=== PATIENT | female | born 1940 | race Caucasian/White ===

== ENCOUNTER 2019-03-29 05:42 | Inpatient (IN) | payer MEDICARE, BC ==
--- NOTE | 2019-03-16 13:46 | HP ---
PREOPERATIVE HISTORY AND PHYSICAL: DATE OF ADMISSION/SURGERY: 03/29/19 DATE OF OFFICE VISIT: 03/16/19 ATTENDING SURGEON: Dr. Tom Velasquez.* (DICTATED BY BETTY KAM) PROCEDURE: Left total shoulder reverse, subpectoral biceps tenodesis. CHIEF COMPLAINT: Left shoulder pain. HISTORY OF PRESENT ILLNESS: Joey is a 78-year-old female who presents to the clinic for left shoulder pain due to rotator cuff arthropathy. She has failed conservative measures. Therefore, agreed to undergo a left total shoulder reverse, subpectoral biceps tenodesis with Dr. Velasquez on 03/29/19. PAST MEDICAL HISTORY: Hypertension, hypothyroidism, obstructive sleep apnea, diastolic dysfunction, permanent AFib, myocardial myopathy, nonobstructive coronary artery disease, obesity, bilateral pedal edema, and paroxysmal SVT. PAST SURGICAL HISTORY: Tonsillectomy, left ORIF of the humerus, right total shoulder replacement, left thumb, dental implants, hysterectomy, bilateral total knees. The patient denies prior complications with anesthesia. MEDICATIONS: 1. Vitamin D 1000 units 1 to 2 caps daily. 2. Calcium 350 mg 1 cap daily. 3. Synthroid 110 mcg 1 daily. 4. Eliquis 5 mg 1 by mouth twice a day. 5. Torsemide 10 mg 1 by mouth every day. 6. Duloxetine 30 mg 1 cap every morning. 7. Vitamin D one daily. 8. Rosuvastatin 5 mg 1 daily. 9. Bisoprolol 5 mg one-half every day. ALLERGIES: SULFA ANTIBIOTICS. FAMILY HISTORY: Positive for heart disease and diabetes. Denies family history of DVT or PE. SOCIAL HISTORY: She lives with her . She denies tobacco or illegal drug use or alcohol consumption. She is right-hand dominant. REVIEW OF SYSTEMS: A 14-point review of systems was reviewed with the patient. Positive for current complaint, otherwise negative. Denies fever, chills, chest pain, shortness of breath, history of bleeding disorder, history of DVT or PE. PHYSICAL EXAMINATION GENERAL: A 78-year-old well-developed, well-nourished female, in no acute distress. VITAL SIGNS: Height 65.5, weight 196. Pulse 80, blood pressure 104/76, temperature 97.8, BMI 32.1. HEENT: Normocephalic, atraumatic. PERRL. Throat clear. NECK: Supple. PULMONARY: Lungs are clear to auscultation bilaterally. No wheezing, rhonchi, or rales. CARDIO: Regular rate and rhythm. S1, S2. No murmurs, gallops, or rubs. No edema. ABDOMEN: Positive bowel sounds. Soft, nontender. NEURO: Alert and oriented x3. Cranial nerves grossly intact. MUSCULOSKELETAL: Left upper extremity: Skin is intact. No warmth or erythema. Tenderness over the anterior joint line. No signs of infection. Forward flexion 140, abduction 90, external rotation to 40, internal rotation to the lumbar spine. Full range of motion of the elbow, wrist, and hand. +4/5 strength to rotator cuff testing with pain. Positive impingement, [place], [place], [place], and [place]. +2 radial pulse. Sensation intact to light touch distally. IMPRESSION: Left shoulder rotator cuff arthropathy. PLAN: The patient is scheduled to undergo a left total shoulder reverse and subpectoral biceps tenodesis with Dr. Velasquez on 03/29/19. She will follow up 10 to 14 days postop for followup and suture removal. She will hold the Eliquis the day before surgery per her PCP recommendation. Percocet will be used for postop pain management. BETTY KAM [id number]/CPS #: [id number] MTDD
[~2019-03-29 05:42] MED LIST: Buffered Lidocaine 1% SYRIN* 1 ML/SYRINGE INTRADERM ONE
--- OUTSIDE RECORDS SUMMARY | 2019-03-29 05:45 | XMS REPORT | Continuity of Care Document ---
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 Onset: 10/24/2018 Arthroplasty of knee Nereida Crabtree M.D. Onset: 10/24/2018 Social History Type Date Description Comments Sex Unknown ETOH Use Drinks Alcoholic Beverages Occasionally Tobacco Use Start: Unknown Patient has never smoked Smoking Status Reviewed: 03/16/19 Patient has never smoked Exercise Type/Frequency Exercises regularly Allergies, Adverse Reactions, Alerts Active Allergies Reaction Severity Comments Date Sulfa Antibiotics 06/15/2013 Medications Active Medications SIG Qnty Indications Ordering Provider Date Vitamin D 1-2 caps by Unknown 1000Units mouth daily Calcium 1 cap by mouth Unknown 315mg daily Synthroid 110 mcg one tab daily Unknown Eliquis 1 by mouth twice Unknown 5mg Tablets a day Torsemide 1 by mouth every Unknown 10mg Tablets day Duloxetine HCL take 1 capsule Unknown 30mg Caps by mouth every DR Part morning Citracal +D3 Unknown [id number]-mg-Unit Chewtabs Rosuvastatin Calcium 1 tab by mouth Unknown 5mg daily Tablets Bisoprolol Fumarate 1/2 by mouth 90tabs Unknown 5mg every day Tablets Medications Administered in Office Medication SIG Qnty Indications Ordering Provider Date Triamcinolone (Kenalog) Tom Velasquez MD 10/27/2018 Injection Triamcinolone (Kenalog) Tom Velasquez MD 07/12/2018 Injection Triamcinolone (Kenalog) Tom Velasquez MD 07/12/2018 Injection Triamcinolone (Kenalog) Tom Velasquez MD 02/08/2018 Injection Triamcinolone (Kenalog) Tom Velasquez MD 02/08/2018 Injection Depomedrol 80MG Josh Cope M.D. 07/31/2014 Injection Immunizations Description No Information Available Vital Signs Date Vital Result Comment 03/16/2019 9:45am Height 65.5 inches 5'5.50" Weight 196.00 lb Heart Rate 80 /min BP Systolic 104 mmHg BP Diastolic 76 mmHg Body Temperature 97.8 F Pain Level 2 BMI (Body Mass Index) 32.1 kg/m2 02/24/2019 9:18am Height 65.5 inches 5'5.50" Weight 195.00 lb BP Systolic 112 mmHg BP Diastolic 72 mmHg Respiratory Rate 20 /min Pain Level 3 BMI (Body Mass Index) 32.0 kg/m2 Results Description No Information Available Procedures Date Code Description Status 10/27/2018 62875 Inject/Drain Joint/Bursa Major W/O US Completed Medical Devices Description No Information Available Encounters Type Date Location Provider Dx Diagnosis Office Visit 02/24/2019 [facility] Tom Velasquez MD M19.012 Primary 9:00a at [place] osteoarthritis, left shoulder M75.102 Unsp rotatr-cuff tear/ruptr of left shoulder, not trauma Office Visit 11/15/2018 [facility] M19.012 Primary 10:[facility]a [facility] osteoarthritis, left [place] shoulder M19.011 Primary osteoarthritis, right shoulder Office Visit 10/27/2018 [place] [facility] M19.012 Primary 10:30a [facility] osteoarthritis, left [place] shoulder M75.101 Unsp rotatr-cuff tear/ruptr of right shoulder, not trauma M19.011 Primary osteoarthritis, right shoulder M75.102 Unsp rotatr-cuff tear/ruptr of left shoulder, not trauma Office Visit 10/24/2018 9:15a [facility] Nereida Crabtree, Z96.652 Presence of left at [facility] Servin artificial knee joint Z96.651 Presence of right artificial knee joint M25.561 Pain in right knee M25.562 Pain in left knee M25.461 Effusion, right knee M25.462 Effusion, left knee T84.052A Periprosth osteolysis of internal prosthetic r knee jt, init T84.051A Periprosth osteolysis of internal prosthetic l hip jt, init Office Visit 09/22/2018 9:45a [facility] Tom Velasquez Z96.611 Presence of at [facility] HUA right artificial shoulder joint Office Visit 09/15/2018 10:30a [facility] Vel[facility] Z96.611 Presence of at [facility] HUA right artificial shoulder joint M25.511 Pain in right shoulder Assessments Date Code Description Provider 03/16/2019 M19.012 Primary osteoarthritis, left shoulder Tom Velasquez MD 03/16/2019 M75.102 Unspecified rotator cuff tear or rupture of Tom Velasquez MD left shoulder, n 02/24/2019 M19.012 Primary osteoarthritis, left shoulder Tom Velasquez MD 02/24/2019 M75.102 Unspecified rotator cuff tear or rupture of Tom Velasquez MD left shoulder, n 11/15/2018 M19.012 Primary osteoarthritis, left shoulder Tom Velasquez MD 11/15/2018 M19.011 Primary osteoarthritis, right shoulder Tom Velasquez MD 10/27/2018 M19.012 Primary osteoarthritis, left shoulder Tom Velasquez MD 10/27/2018 M75.101 Unspecified rotator cuff tear or rupture of Tom Velasquez MD right shoulder, 10/27/2018 M19.011 Primary osteoarthritis, right shoulder Tom Velasquez MD 10/27/2018 M75.102 Unspecified rotator cuff tear or rupture of Tom Velasquez MD left shoulder, n 10/24/2018 Z96.652 Presence of left artificial knee joint Solitario Gilbert.DFrank 10/24/2018 Z96.651 Presence of right artificial knee joint Nereidapito Crabtree M.DFrank 10/24/2018 M25.561 Pain in right knee Nereida Bro, M.D. 10/24/2018 M25.562 Pain in left knee Nereida Bro, M.D. 10/24/2018 M25.461 Effusion, right knee Nereida Bro M.D. 10/24/2018 M25.462 Effusion, left knee Nereida Bro M.D. 10/24/2018 T84.052A Periprosthetic osteolysis of internal Nereida Bro M.D. prosthetic right knee 10/24/2018 T84.051A Periprosthetic osteolysis of internal Nereida Bro M.D. prosthetic left hip jaskaran 09/22/2018 Z96.611 Presence of right artificial shoulder joint Tom Velasquez MD 09/15/2018 Z96.611 Presence of right artificial shoulder joint Tom Velasquez MD 09/15/2018 M25.511 Pain in right shoulder Tom Velasquez MD Plan of Treatment Future Appointment(s):04/11/2019 8:45 am - Tom Velasquez MD at [facility] at [id number]/29/2019 7:30 am - Tom Velasquez MD at [facility] at [id number]/16/2019 - Tom Velasquez MDM19.012 Primary osteoarthritis , left shoulderFollow up:Follow up: 10-14 days post opM75.102 Unspecified rotator cuff tear or rupture of left shoulder, n Functional Status Description No Information Available Mental Status Description No Information Available Referrals Description No Information Available
--- OUTSIDE RECORDS SUMMARY | 2019-03-29 05:45 | XMS REPORT | Continuity of Care Document ---
:1940 External Reference #:[id number] Author Name Tom Velasquez MD (transmitted by agent of provider Laurie Amaya) Address [address] [place] [address] Care Team Providers Name Role Phone Alisa Yip MD - Internal Medicine Care Team Information Safety Aide [phone] Problems Active Problems Provider Date Prosthetic arthroplasty [...] Patient has never smoked Smoking Status Reviewed: 02/24/19 Patient has never smoked Exercise Type/Frequency Exercises [...] every DR Part morning Citracal +D3 Unknown [id number]-mg-Unit Chewtabs Rosuvastatin Calcium 1 tab by mouth [...] Available Vital Signs Date Vital Result Comment 02/24/2019 9:18am Height 65.5 inches 5'5.50" Weight 195.00 lb BP Systolic 112 mmHg BP Diastolic 72 mmHg Respiratory Rate 20 /min Pain Level 3 BMI (Body Mass Index) 32.0 kg/m2 11/15/2018 9:54am Height 65.5 inches 5'5.50" Weight 195.00 lb BP Systolic 128 mmHg BP Diastolic 72 mmHg Respiratory Rate 20 /min Pain Level 3 BMI (Body Mass Index) 32.0 kg/m2 Results Description No Information Available Procedures Date Code Description Status 10/27/2018 13614 Inject/Drain Joint/Bursa Major W/O US Completed Medical Devices Description No Information Available Encounters Type Date Location Provider Dx Diagnosis Office Visit 11/15/2018 [facility] Tom Velasquez MD M19.012 Primary 10:[facility], left shoulder M19.011 Primary osteoarthritis, right shoulder Office Visit 10/27/2018 [facility] Tom Velasquez M19.012 Primary 10:30a [facility] osteoarthritis, left [facility]. shoulder M75.101 Unsp rotatr-cuff tear/ruptr of right shoulder, not trauma M19.011 Primary osteoarthritis, right shoulder M75.102 Unsp rotatr-cuff tear/ruptr of left shoulder, not trauma Office Visit 10/24/2018 9:15a [facility] Nereida Crabtree Z96.652 Presence of left [facility] [place] artificial knee C.M.A. joint Z96.651 Presence of right artificial knee joint M25.561 Pain in right knee M25.562 Pain in left knee M25.461 Effusion, right knee M25.462 Effusion, left knee T84.052A Periprosth osteolysis of internal prosthetic r knee jt, init T84.051A Periprosth osteolysis of internal prosthetic l hip jt, init Office Visit 09/22/2018 9:45a [facility] Tom Velasquez Z96.611 [facility] artificial C.M.A. shoulder joint Office Visit 09/15/2018 10:30a [facility] Tom Velasquez Z96.611 [facility] artificial C.M.A. shoulder joint M25.511 Pain in right shoulder Assessments Date Code Description Provider 02/24/2019 M19.012 Primary osteoarthritis, left shoulder Tom [...] Z96.652 Presence of left artificial knee joint Nereida Crabtree M.D. 10/24/2018 Z96.651 Presence of right artificial knee joint Nereida Crabtree M.D. 10/24/2018 M25.561 Pain in right knee Nereida Crabtree M.D. 10/24/2018 M25.562 Pain in left knee Nereida Crabtree M.D. 10/24/2018 M25.461 Effusion, right knee Nereida Crabtree M.D. 10/24/2018 M25.462 Effusion, left knee Nereida Crabtree M.D. 10/24/2018 T84.052A Periprosthetic osteolysis of internal Nereida Crabtree M.D. prosthetic right knee 10/24/2018 T84.051A Periprosthetic osteolysis of internal Nereida Crabtree M.D. prosthetic left hip jaskaran 09/22/2018 Z96.611 Presence of right artificial shoulder joint Tom Velasquez MD 09/15/2018 Z96.611 Presence of right artificial shoulder joint Tom Velasquez MD 09/15/2018 M25.511 Pain in right shoulder Tom Velasquez MD Plan of Treatment 02/24/2019 - Tom Velasquez, MDM19.012 Primary osteoarthritis, left shoulderFollow up:Follow up: for h and pM75.102 Unspecified rotator cuff tear or rupture of left shoulder, n Functional Status Description No Information Available Mental Status Description No Information Available Referrals Description No Information Available
--- OUTSIDE RECORDS SUMMARY | 2019-03-29 05:45 | XMS REPORT | Summary of Care ---
:1940 Author Organization [facility] Address [address] [place] [address] Care Team Providers Name Role Phone Alisa Yip Primary Care Provider Reason for Visit Reason Comments Pre-Op Exam Pt. is Scheduled for Left Total Shoulder Reverse And Subpectoral Biceps Tenodesis on 03/28/[address] Tom Velasquez. Medication Management Please discuss Eliquis protocol for surgery Encounter Details Date Type Department Care Team Description 03/20/2019 Office Visit Janet Samaniego, Preoperative cardiovascular examination (Primary Dx); Cardiology MD Jt Permanent atrial fibrillation; [address] [facility] [address] Coronary artery disease involving andreafski coronary artery of andreafski heart without angina pectoris; [place] [address] [place] [address] Family hx of aortic aneurysm [phone] Allergies Active Allergy Reactions Severity Noted Date Comments Codeine Other 03/22/2008 "gets me into space" Meperidine And Related Nausea Only 02/20/2003 Food Swelling 11/29/2015 Sweet peppers and eggplant Sulfa Antibiotics Dermatologic Reaction 02/20/2003 skin peels Neoprene=dermatitis Tomato Dermatologic Reaction 07/24/2008 canned documented as of this encounter (statuses as of 03/20/2019) Medications Medication Sig Dispensed Refills Start Date End Date Status VITAMIN D 1000 UNIT PO Take 1,000 Units 0 Active CAPS by mouth DAILY. Calcium Citrate-Vitamin Take 1 Tab by 0 Active D (CALCIUM CITRATE + D) mouth DAILY. 315-200 MG-UNIT Oral TabIndications: Chronic low back pain without sciatica, unspecified back pain laterality torsemide (DEMADEX) 10 Take 1 Tab by 30 Tab 11 07/07/2017 Active MG Oral TabIndications: mouth DAILY. Essential hypertension bisoprolol (ZEBETA) 5 MG TAKE 1/2 TABLET 45 Tab 3 02/15/2018 Active Oral TabIndications: BY MOUTH DAILY Cardiomyopathy (HCC) ELIQUIS 5 MG Oral take 1 tablet by 60 Tab 11 04/04/2018 Active TabIndications: mouth twice a Paroxysmal atrial day fibrillation (HCC) Rosuvastatin Calcium 5 take 1 tablet by 90 Tab 3 08/11/2018 Active MG Oral TabIndications: mouth once daily Coronary artery disease involving andreafski coronary artery of andreafski heart without angina pectoris duloxetine (CYMBALTA) 30 take 1 capsule 90 Cap 1 11/08/2018 Active MG Oral CAPSULE ENTERIC by mouth once COATED daily PARTICLESIndications: Chronic pain syndrome levothyroxine take 1 tablet by 90 Tab 3 12/13/2018 Active (SYNTHROID\\UNITHROID) mouth once daily 100 MCG Oral Tab tramadol (ULTRAM) 50 MG Take 1 Tab by 90 Tab 5 02/14/2019 Active Oral TabIndications: mouth EVERY Arthralgia of both knees EIGHT HOURS NEEDED (leg / knee pain). Max Daily Amount: 150 mg. documented as of this encounter (statuses as of 03/20/2019) Active Problems Problem Noted Date Status post total bilateral knee replacement 11/26/2016 Anticoagulant long-term use 09/04/2016 Left wrist pain 06/25/2016 Acquired equinus deformity of both feet 01/07/2016 Overview: Bilateral AFOs - [employer] Positive cardiac stress test 11/29/2015 Chronic a-fib 09/30/2015 JONAH (obstructive sleep apnea) 07/10/2015 Osteoporosis of forearm 01/29/2015 Overview: Hip and spine good - Frax data: 10 yr risk for major osteoporotic fracture - 6.7 %; hip fracture 0.5-% Paroxysmal SVT (supraventricular tachycardia) 04/02/2014 Palpitations 03/15/2014 Vertigo 01/25/2014 BMI 35.0-35.9,adult 11/23/2011 Overview: This patient's BMI has been calculated and is above average, and BMI management plan is completed. General patient education discussion including: Patient to keep a weight log that we will review at follow-up. Family hx of aortic aneurysm 07/16/2009 Overview: Mother and sister- had screening Echo ~2004 cta ordered 04/03 Vitamin D deficiency 08/02/2007 Hypothyroidism 07/11/2007 Migraine, unspecified, without mention of intractable migraine without 2007 mention of status migrainosus documented as of this encounter (statuses as of 03/20/2019) Resolved Problems Problem Noted Date Resolved Date Tachycardia 03/15/2014 04/02/2014 Absence of menstruation 07/11/2008 07/11/2008 documented as of this encounter (statuses as of 03/20/2019) Immunizations Name Administration Dates Next Due Adacel TdaP 11/26/2005 Depo Medrol (160mg) 12/21/2013 H1N1 Injectable Adult 07/02/2009 Influenza (IM) Preservative Free 03/22/2013, 03/08/2012 Influenza Vaccine High Dose 03/05/2019, 03/21/2018, 03/25/2016, 03/27/2015, 03/23/2014 Influenza Vaccine Whole 03/02/2017 PNEUMOCOCCAL POLYSACCHARIDE VACCINE 08/06/2010 Pneumococcal Conjugate(13 Valent) 01/09/2015 ZOSTER (ZOSTAVAX) VACCINE 07/11/2008 documented as of this encounter Social History Tobacco Use Types Packs/Day Years Used Date Never Smoker Smokeless Tobacco: Never Used Alcohol Use Drinks/Week oz/Week Comments Yes 2 Glasses of wine 2.0 2 glasses of wine a week Sex Assigned at Date Recorded Not on file Job Start Date Occupation Industry Not on file Not on file Not on file Travel History Travel Start Travel End No recent travel history available. documented as of this encounter Last Filed Vital Signs Vital Sign [place] Time Taken Comments Blood Pressure 118/64 03/20/2019 2:22 PM EDT Pulse 72 03/20/2019 2:22 PM EDT Temperature - - Respiratory Rate - - Oxygen Saturation - - Inhaled Oxygen Concentration - - Weight 88.9 kg (196 lb) 03/20/2019 2:22 PM EDT Height 165.1 cm (5' 5") 03/20/2019 2:22 PM EDT Body Mass Index 32.62 03/20/2019 2:22 PM EDT documented in this encounter Patient Instructions Patient InstructionsJt Samaniego MD - 03/20/2019 2:20 PM EDT No medication changes today. OK to proceed to your planned surgery at a low cardiac risk. Hold your Eliquis for 48 hours prior to surgery. Continue to work on a low sodium diet and weight loss. Keep your planned appointment with me next December. documented in this encounter Progress Notes Jt Samaniego MD - 03/20/2019 2:20 PM EDT [facility] Patient: Joey Padilla Date of : 1940 Date of Service: 03/20/2019 REFERRING PRACTITIONER: Tom Velasquez PRIMARY CARE PROVIDER: Alisa Yip Chief Complaint: Chief Complaint Patient presents with Pre-Op Exam Pt. is Scheduled for Left Total Shoulder Reverse And Subpectoral Biceps Tenodesis on 03/28/[address] Tom Velasquez. Medication Management Please discuss Eliquis protocol for surgery History of Present Illness: We had the pleasure of seeing Joey Alva today at the [facility] Card[facility] Office. She is a 78-y.o. female with hypothyroidism on Synthroid, obesity,JONAH on CPAP, diastolic dysfunction, symptomatic PACs/paroxysmal SVT as well as permanent atrial fibrillation, mild cardiomyopathy (now resolved), strong family history of aortic aneurysms, and positivenuclear stress test with nonobstructive CAD by cath November 2015. Ms. Camacho returns to cardiology clinic today for perioperative evaluation prior to undergoing L shoulder surgery with Dr. Velasquez on 03/28. Since her last visit with me in December, she reports feeling fairly well overall. BPs at home have been pretty good and her mild LE edema has been stable (as has her weight) . She still has issues with some ankle instability and gets some pain in her L lateral ankle, but that hasn't gotten too much worse recently. She is able to climb a flight of stairs as longas there are railings; doesn't get any CP with that activity. Does sometimes get winded with climbing hills. Denies any palpitations, lightheadedness, or syncope. No orthopnea or paroxysmal dyspnea. Patient Active Problem List Diagnosis Hypothyroidism Migraine, unspecified, without mention of intractable migraine without mention of status migrainosus Vitamin D deficiency Family hx of aortic aneurysm BMI 35.0-35.9,adult Vertigo Palpitations Paroxysmal SVT (supraventricular tachycardia) (HCC) Osteoporosis of forearm JONAH (obstructive sleep apnea) Chronic a-fib (HCC) Positive cardiac stress test Acquired equinus deformity of both feet Left wrist pain Anticoagulant long-term use Status post total bilateral knee replacement Past Medical History: Diagnosis Date Absence of menstruation 07/11/2008 BMI 35.0-35.9,adult 11/23/2011 Migraine, unspecified, without mention of intractable migraine without mention of status migrainosus 07/11/2007 JONAH (obstructive sleep apnea) 07/10/2015 Osteoarthritis 07/11/2007 Osteoarthrosis, unspecified whether generalized or localized, hand 2007 Osteoarthrosis, unspecified whether generalized or localized, other specified sites 03/19/2008 Postmenopausal Screening for malignant neoplasm of the cervix 03/14/2012 Special screening for malignant neoplasms, colon 07/2003 Unspecified hypothyroidism 07/11/2007 Vitamin D deficiency 08/02/2007 Past Surgical History: Procedure Laterality Date CATHETERIZATION HEART LEFT N/A 11/29/2015 Procedure: CATHETERIZATION HEART LEFT; Surgeon: Babar Reyna MD; Location: [facility] CCL SECTION NEC X2 KNEE/ANKLE ARTHROPLASTY 9.2.2002 RIGHT OTHER MISC PROCEDURES 11.20.2006 LRTI procedure,right thumb-resection of base of trapezoid,right hand OTHER MISC PROCEDURES 10.9.2007 basilar joint and trapezial arthritis,left thumb AL REMOVE TONSILS/ADENOIDS,<12 Y/O AL TOTAL ABDOM HYSTERECTOMY SHOULDER ARTHROPLAST NEC right TOTAL ABD HYSTERECTOMY TOTAL KNEE REPLACEMENT 5..1995 Left Allergies Allergen Reactions Codeine Other "gets me into space" Demerol 100 [Meperidine And Related] Nausea Only Food Swelling Sweet peppers and eggplant Sulfa Antibiotics Dermatologic Reaction skin peels Neoprene=dermatitis Tomato Dermatologic Reaction canned Current Outpatient Medications Medication bisoprolol (ZEBETA) 5 MG Oral Tab Calcium Citrate-Vitamin D (CALCIUM CITRATE + D) 315-200 MG-UNIT Oral Tab duloxetine (CYMBALTA) 30 MG Oral CAPSULE ENTERIC COATED PARTICLES ELIQUIS 5 MG Oral Tab levothyroxine (SYNTHROID\\UNITHROID) 100 MCG Oral Tab Rosuvastatin Calcium 5 MG Oral Tab torsemide (DEMADEX) 10 MG Oral Tab VITAMIN D 1000 UNIT PO CAPS Family History Problem Relation Age of Onset Arthritis Mother Hypertension Mother Heart Mother Aneurysm Mother upper aorta Diabetes Father Stroke Father Heart Father ID Stroke Brother Breast Cancer Paternal Aunt Social History Socioeconomic History Marital status: Spouse name: Not on file Number of children: Not on file Years of education: Not on file Highest education level: Not on file Occupational History Not on file Social Needs Financial resource strain: Not on file Food insecurity: Worry: Not on file Inability: Not on file Transportation needs: Medical: Not on file Non-medical: Not on file Tobacco Use Smoking status: Never Smoker Smokeless tobacco: Never Used Substance and Sexual Activity Alcohol use: Yes Alcohol/week: 2.0 standard drinks Types: 2 Glasses of wine per week Comment: 2 glasses of wine a week Drug use: No Sexual activity: Not on file Lifestyle Physical activity: Days per week: Not on file Minutes per session: Not on file Stress: Not on file Relationships Social connections: Talks on phone: Not on file Gets together: Not on file Attends anabaptism service: Not on file Active member of club or organization: Not on file Attends meetings of clubs or organizations: Not on file Relationship status: Not on file Intimate partner violence: Fear of current or ex partner: Not on file Emotionally abused: Not on file Physically abused: Not on file Forced sexual activity: Not on file Other Topics Concern Not on file Social History Narrative suddenly - 12/01- Pancreatic cancer Review of Systems - Negative except as noted in HPI. No bleeding issues on Eliquis. Physical Exam: Vitals: 03/20/19 1422 BP: 118/64 BP Location: Right arm Patient Position: Sitting Pulse: 72 Weight: 196 lb (88.9 kg) Height: 5' 5" (1.651 m) Body mass index is 32.62 kg/m. General: Overweight, pleasant, alert 78-y.o. female in NAD HEENT: anicteric, MMM, no E/E OP, conj pink Neck: JVP approx 7-8 cm above RA; no carotid bruits or LAD CV: Irreg irreg, normal s1/s2, 1-2/6 systolic ejection mumur at USB as before. No rubs/gallops Pulm: CTA bilaterally without wheezes, rhonchi, or rales. No increased work of breathing. Abd: soft, obese, NT, ND, +BS. No appreciable pulsatile masses or bruits. Ext: Trace bilateral ankle edema. No cyanosis, no cords, redness, or warmth, 2 + distal pulses. Neuro: no gross focal deficits Skin: no visible lesions Labs: Lab Results Component Value Date NA 141 03/09/2019 K 4.0 03/09/2019 CL 102 03/09/2019 CO2 33 (H) 03/09/2019 GLUCOSE 88 03/09/2019 BUN 18 (H) 03/09/2019 CREATININE 0.8 03/09/2019 CALCIUM 9.4 03/09/2019 TP 7.2 03/10/2017 ALBUMIN 3.9 03/10/2017 AST 44 03/10/2017 ALT 35 03/10/2017 ALK 122 03/10/2017 TBILI 1.0 03/10/2017 No results found for: BNP Lab Results Component Value Date CHOL 129 01/17/2018 TRIG 86 01/17/2018 HDL 44 (L) 01/17/2018 LDL 68 01/17/2018 LDLHDLRATIO 1.5 01/17/2018 CHOLHDLRATIO 2.9 01/17/2018 Cardiac Studies: EKG 03/09/19 (I personally reviewed): Afib in 60s. No sig change from prior. TTE 08/08/18: FINAL IMPRESSION: Global systolic function is normal, with an estimated ejection fraction of 60-65%. Diastolic function is indeterminate (by 2016 guidelines). The left atrium is mildly (35-41 ml/m2) dilated measuring 39 ml/m2. Proximal Ascending Aorta measures 3.65 cm with indexed diameter of 1.85 cm/m2 and is borderline dilated. There is trivial to mild mitral regurgitation. There is mild to moderate aortic regurgitation. There is mild tricuspid regurgitation. There is trivial pulmonic regurgitation. Compared to the prior echocardiogram of 07/2015, there is improvement in LVEF and LA size and may be slight worsening of Aortic Regurgitation. Further clinical correlation is recommended. Left Heart Cath 11/29/15: SUMMARY: 1. No significant obstructive coronary artery disease. 2. Ectasia noted in the vessels with slow flow. Regadenoson SPECT 08/30/15: Findings: There is decreased radiopharmaceutical uptake seen by the apical and mid anterior segment showing some interval reperfusion on resting images indicating small area of mild intensity ischemia. There is no left ventricular enlargement. There is no left ventricular hypokinesia. The left ventricular ejection fraction is 69 %. Left ventricular end-diastolic volume of 83 ml and end systolic volume of [address] findings: Coronary artery calcification. Impression: 1. There is a small area of mild intensity ischemia involving apical and mid anterior segments. 2. There is normal wall motion. 3.The left ventricular ejection fraction is 69 %. TTE 08/16/2015: FINAL IMPRESSION: Patient is in atrial fibrillation at the time of examination. Normal LV size with severe left atrial enlargement. Low normal LV systolic function with no regional wall motion abnormalities; estimated LVEF 50% (see text). Severe right atrial enlargement. Normal RV size and systolic function. Mild mitral, aortic, and tricuspid regurgitation. Estimated upper normal pulmonary arterial systolic pressure. No pericardial effusion. Compared to prior study 04/22/2015, LVEF has improved (40% --> 50%). Other findings are largely similar. CTA C/A/P 04/21/14: IMPRESSION: The abdominal aorta and iliac arteries are tortuous, most consistent with arterial disease most likely atherosclerotic in nature. No other indication of significant aortic or iliac artery pathology or aneurysm including the main visceral arteries, in the chest abdomen or pelvis is appreciated. Holter Monitor 03/15/14: INTERPRETATION: 1. Baseline rhythm during the recording was normal sinus rhythm. 2. The minimum observed heart rate was 52 beats per minute and the maximum was 112 beats per minute. Average rate throughout the recording was 75 beats per minute and the maximum pause was 1.5 seconds. 3. Rare ventricular ectopic beats were noted (209 beats throughout the duration of the recording). 4. Frequent supraventricular beats (9% of the recording) with runs of supraventricular tachycardia as long as 32 beats were noted. 5. The supraventricular tachycardia appears to be a "long R-P" tachycardia, which is consistent with a paroxysmal atrial tachycardia. 6. Eight patient events were noted in the patient log; these all corresponded to brief runs of supraventricular tachycardias. CONCLUSION: Underlying normal sinus rhythm with frequent supraventricular ectopics/premature atrial contractions. Numerous runs of supraventricular tachycardia (likely paroxysmal atrial tachycardia), which correspond to patient's symptoms of palpitations. Adenosine SPECT 01/26/2003: IMPRESSION: Normal dual isotope pharmacological gated stress and resting SPECT heart scan. The left ventricular wall motion appears normal throughout and the global left ventricular ejection fracture is calculated at 59%. Assessment & Plan: Joey Padilla is a 78-y.o. female with hypothyroidism on Synthroid , obesity, JONAH on CPAP, diastolic dysfunction, symptomatic PACs/paroxysmal SVT as well as permanent atrial fibrillation, mild cardiomyopathy (now resolved), strong family history of aortic aneurysms, and positive nuclear stress test with nonobstructive CAD by cath November 2015. ICD-9-CM ICD-10-CM 1. Preoperative cardiovascular examination V72.81 Z01.810 2. Permanent atrial fibrillation 427.31 I48.2 3. Coronary artery disease involving andreafski coronary artery of andreafski heart without angina pectoris 414.01 I25.10 4. Family hx of aortic aneurysm V17.49 Z82.49 1. Perioperative Risk Assessment: According to the [place] Perioperative Cardiac Risk Assessment Tool,Joey Padilla has an estimated risk for perioperative ID or cardiac arrest with noncardiac surgery of approximately 0.21 %. According to the Revised Cardiac Risk Index, her estimated riskfor perioperative ID, PE, cardiac arrest, or complete heart block with noncardiac surgery is approximately 0.9%. Her functional status is no greater than 4 METs. In order to further evaluate and/or attenuate this patient's risk, I recommend the following: No further cardiac testing is needed at this time, and she can proceed to her planned shoulder surgery at an acceptably low cardiac risk as detailed above. She should hold her Eliquis for 48 hours prior to surgery and restart as soon after surgery as Dr. Velasquez deems safe from a bleeding perspective. She should remain on bisoprolol perioperatively. Try to avoid excessive IVFs perioperatively. 2. Permanent Atrial Fibrillation: The etiology of atrial fibrillation in this patient is most likelyrelated to obesity and JONAH. The heart-rate is currently reasonably controlled on the current medicalregimen. This patient's [id number] Vasc score is 4. I recommend the following treatment strategy and medical regimen for this patient: Stroke prevention: Based on the patient's [id number] risk profile, I recommend continuing Eliquis 5mg BID. No bleeding issues on the Eliquis. Renal function normal on recent labs. Rate control: Cont bisoprolol. Rhythm control: N/A; pt is not having any significant symptoms from the AF and her LA is severely enlarged, so would likely have difficulty maintaining NSR. Further workup/management issues: Cont CPAP 3. Resolved Nonischemic Cardiomyopathy with NYHA Class I-II symptoms: Nonobstructive CAD by cath. Symptoms are quite stable. Recommendations are as follows: Most recent LV function: 60-65% (assessed on 08/08/18 by echo). Beta-carmine: Cont low dose bisoprolol 2.5mg daily. ANDRES-inhibitor or ARB: No need given normal/low BPs in the past and normal LVEF. Diuretics: Cont torsemide 10mg once daily. Can take an extra 10mg daily prn for worsening LE edema. I counseled her to continue working on a low sodium diet. 4. Family History of Aortic Aneurysms: No sig aneurysm noted on echo in Jul 2018 or on CTA April2014. Will cont to monitor; reasonable to repeat a CT at some point. 5. Nonobstructive CAD: Had myalgias from atorvastatin. Given her known mild plaque on cath, I think a low dose statinis reasonable in her, and she has had a significant improvement in her LDL down to 60 on low dose Crestor. Will cont 5mg daily. Not on ASA d/t My Thank you for allowing me to participate in the care of Joey Jl Padilla. We have scheduled routine f/u in our office in December as previously planned. If you have any questions or concerns please feel free to call our office at . Jt Samaniego MD, 03/20/2019, 14:43 This note was created using my previous note as a template; changes were made where appropriate, andall information in the current note is up to date to the best of my knowledge.Electronically signed by Jt Samaniego MD at 2018 2:58 PM EDTdocumented in this encounter Plan of Treatment Date Type Specialty Care Team Description 01/17/2020 Office Visit Cardiology Jt Samaniego MD [address] [place] [address] [phone] Health Maintenance Due Date Last Done Comments ZOSTER IMMUNIZATION SERIES 09/05/2008 07/11/2008 (2 of 3) DEPRESSION SCREENING 05/30/2019 05/30/2018 FALL RISK ASSESSMENT 05/30/2019 05/30/2018, 05/30/2018 OSTEOPOROSIS SCREENING 01/10/2025 01/10/2015, 11/26/2006 MEDICARE ANNUAL WELLNESS Discontinued 01/09/2015, 11/23/2012, VISIT 11/23/2011, Additional history exists PNEUMOCOCCAL 65+YRS Completed 01/09/2015, 08/06/2010 INFLUENZA VACCINE Completed 03/05/2019, 03/21/2018, 03/02/2017, Additional history exists HPV IMMUNIZATION SERIES Aged Out No longer eligible based on patient's age to complete this topic MENINGOCOCCAL VACCINE IMM Aged Out No longer eligible based on patient's age to complete this topic documented as of this encounter Results Not on filedocumented in this encounter Visit Diagnoses Diagnosis Preoperative cardiovascular examination - Primary Pre-operative cardiovascular examination Permanent atrial fibrillation Atrial fibrillation Coronary artery disease involving andreafski coronary artery of andreafski heart without angina pectoris Family hx of aortic aneurysm Family history of other cardiovascular diseases documented in this encounter Guarantor Name Account Type Relation to Date of Phone Billing Address Patient Janice-de Personal/Famil 1940 [address] [phone] [place], [place] (Work) [id number] documented as of this encounter
--- OUTSIDE RECORDS SUMMARY | 2019-03-29 05:45 | XMS REPORT | Summary of Care ---
:1940 Author Organization [facility] Address [facility] [place] [address] Care Team Providers Name Role Phone Alisa Yip MD Primary Care Provider Reason for Referral MRI/CAT/PET Scan (Routine) Status Reason Specialty Diagnoses / Referred By Referred To Procedures Contact Contact Authorized Diagnoses Pedal edema Alisa Yip MD Procedures VL LOWER EXTREMITY DUPLEX VEINS BILATERAL [address] [place] [address] Reason for Visit Reason Comments Edema c/o bilateral upper and lower leg swelling. Pitting edema lower legs over the weekend. Denies weeping. Also c/o discomfort with walking. States not taking torsemide as strictly due to bathroom concerns. States was away last week and did a lot of walking. Encounter Details Date Type Department Care Team Description 02/14/2019 Office Visit [facility] Alisa Yip MD Pedal edema (Primary Dx); Medicine [address] [facility] Hypothyroidism, unspecified type; [address] [place] [address] Chronic a-fib (HCC); [place] [address] Acquired equinus deformity of both feet; [phone] Anticoagulant long-term use; (Fax) Arthralgia of both knees Allergies Active Allergy Reactions Severity Noted Date Comments Codeine Other 03/22/2008 "gets me into space" Meperidine And Related Nausea Only 02/20/2003 Food Swelling 11/29/2015 Sweet peppers and eggplant Sulfa Antibiotics Dermatologic Reaction 02/20/2003 skin peels Neoprene=dermatitis Tomato Dermatologic Reaction 07/24/2008 canned documented as of this encounter (statuses as of 02/14/2019) Medications Medication Sig Dispensed Refills Start Date [...] mouth once daily Coronary artery disease involving [place] coronary artery of [place] heart without angina pectoris duloxetine (CYMBALTA) 30 [...] as of this encounter (statuses as of 02/14/2019) Active Problems Problem Noted Date Status post total bilateral knee replacement 11/26/2016 Anticoagulant long-term use 09/04/2016 Left wrist pain 06/25/2016 Acquired equinus deformity of both feet 01/07/2016 Overview: Bilateral AFOs - 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 Positive cardiac stress test 11/29/2015 Chronic [...] as of this encounter (statuses as of 02/14/2019) Resolved Problems Problem Noted Date Resolved Date Tachycardia 03/15/2014 04/02/2014 Absence of menstruation 07/11/2008 07/11/2008 documented as of this encounter (statuses as of 02/14/2019) Immunizations Name Administration Dates Next Due Adacel TdaP 11/26/2005 Depo Medrol (160mg) 12/21/2013 H1N1 Injectable Adult 07/02/2009 Influenza (IM) Preservative Free 03/22/2013, 03/08/2012 Influenza Vaccine High Dose 03/21/2018, 03/25/2016, 03/27/2015, 03/23/2014 Influenza Vaccine Whole [...] Sign Reading Time Taken Comments Blood Pressure 118/72 02/14/2019 4:57 PM EDT Pulse 80 02/14/2019 4:57 PM EDT Temperature - - Respiratory Rate 18 02/14/2019 4:57 PM EDT Oxygen Saturation 99% 02/14/2019 4:57 PM EDT Inhaled Oxygen - - Concentration Weight 91.6 kg (202 lb) 02/14/2019 4:57 PM with bilateral leg EDT braces Height 165.1 cm (5' 5") 02/14/2019 4:57 PM EDT Body Mass Index 33.61 02/14/2019 4:57 PM EDT documented in this encounter Patient Instructions Patient InstructionsAlisa Yip MD - 02/14/2019 5:00 PM EDTPlan 1. Keep the legs up - 2. knee high compression mild 15- 20 - 3. Resume torsemide - May take 1.5 pills - but if weight down and feel weak need to cut back- 4. vl to assess for clots in the legs- not likely with anticoag on board - Combine actetamonphen - 1000 mg 3x / day with tramadol - documented in this encounter Progress Notes Alisa Yip MD - 02/14/2019 5:00 PM EDT NAME:Joey Padilla 1940: 1940 ENC Date: 02/14/2019 CC: Chief Complaint Patient presents with Edema c/o bilateral upper and lower leg swelling. Pitting edema lower legs over the weekend. Denies weeping. Also c/o discomfort with walking. States not taking torsemide as strictly due to bathroom concerns. States was away last week and did a lot of walking. Joey Padilla is a 78-y.o. female Bilateral pedal edema - Was on vacation- Walking a lot - in [place] Current Outpatient Medications Medication Sig bisoprolol (ZEBETA) 5 MG Oral Tab TAKE 1/2 TABLET BY MOUTH DAILY Calcium Citrate-Vitamin D (CALCIUM CITRATE + D) 315-200 MG-UNIT Oral Tab Take 1 Tab by mouth DAILY. duloxetine (CYMBALTA) 30 MG Oral CAPSULE ENTERIC COATED PARTICLES take 1 capsule by mouth once daily ELIQUIS 5 MG Oral Tab take 1 tablet by mouth twice a day levothyroxine (SYNTHROID\\UNITHROID) 100 MCG Oral Tab take 1 tablet by mouth once daily Rosuvastatin Calcium 5 MG Oral Tab take 1 tablet by mouth once daily torsemide (DEMADEX) 10 MG Oral Tab Take 1 Tab by mouth DAILY. tramadol (ULTRAM) 50 MG Oral Tab Take 1 Tab by mouth EVERY EIGHT HOURS NEEDED (leg / knee pain). Max Daily Amount: 150 mg. VITAMIN D 1000 UNIT PO CAPS Take 1,000 Units by mouth DAILY. No current facility-administered medications for this visit. 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 General patient education discussion including: Patient to keep a weight log that we will review at follow-up. Family hx of aortic aneurysm 07/16/2009 Mother and sister- had screening Echo ~2004 cta ordered 04/03 Vitamin D deficiency 08/02/2007 Hypothyroidism 07/11/2007 Migraine, unspecified, without mention of intractable migraine without mention of status migrainosus 07/11/2007 Family History Problem Relation Age of Onset Arthritis Mother Hypertension Mother Heart Mother Aneurysm Mother upper aorta Diabetes Father Stroke Father Heart Father [place] Stroke Brother Breast Cancer Paternal Aunt No cardiopulmonary symptoms No upper or lower GI complaints No urinary tract symptoms. No bruising/ bleeding. No neurological complaints . No insomnia.+ . Social History Tobacco Use Smoking status: Never Smoker Smokeless tobacco: Never Used Substance Use Topics Alcohol use: Yes Alcohol/week: 2.0 standard drinks Types: 2 Glasses of wine per week Comment: 2 glasses of wine a week Drug use: No OBJECTIVE: BP 118/72 (BP Location: Right arm, Patient Position: Sitting) | Pulse 80 | Resp 18 | Ht 5' 5" (1.651 m) | Wt 202 lb (91.6 kg) Comment: with bilateral leg braces | SpO2 99% | BMI 33.61 kg/m . Heent neg Neck no JVD, thyromegaly or bruit Lungs Clear CV rrr Abd soft, nontender, no organomegaly Ext 2+edema; no lesions; pulses intact Neuro: intellect intact ; motor including gait unremarkable A/P ICD-9-CM ICD-10-CM 1. Pedal edema 782.3 R60.0 VL LOWER EXTREMITY DUPLEX VEINS BILATERAL 2. Hypothyroidism, unspecified type 244.9 E03.9 3. Chronic a-fib (HCC) 427.31 I48.2 4. Acquired equinus deformity of both feet 736.72 M21.6X1 M21.6X2 5. Anticoagulant long-term use V58.61 Z79.01 6. Arthralgia of both knees 719.46 M25.561 tramadol (ULTRAM) 50 MG Oral Tab M25.562 Patient Instructions Plan 1. Keep the legs up - 2. knee high compression mild 15- 20 - 3. Resume torsemide - May take 1.5 pills - but if weight down and feel weak need to cut back- 4. vl to assess for clots in the legs- not likely with anticoag on board - Combine actetamonphen - 1000 mg 3x / day with tramadol - AUTHOR: Alisa Yip MD 17:46 02/14/2019 documented in this encounter Plan of Treatment Date Type Specialty Care Team Description 03/30/2019 Office Visit Internal Medicine Alisa Yip MD [address] [place] [address] 01/17/2020 Office Visit Cardiology Jt Samaniego MD [facility] [place] [address] Name Type Priority Associated Diagnoses Order Schedule VL LOWER EXTREMITY Imaging Routine Pedal edema 1 Occurrences starting DUPLEX VEINS BILATERAL 02/14/2019 until 02/14/2020 Health Maintenance Due Date Last Done Comments ZOSTER IMMUNIZATION SERIES 09/05/2008 07/11/2008 (2 of 3) INFLUENZA VACCINE (#1) 2019 03/21/2018, 03/02/2017, 03/25/2016, Additional history exists DEPRESSION SCREENING 05/30/2019 05/30/2018 FALL RISK ASSESSMENT 05/30/2019 05/30/2018, 05/30/2018 OSTEOPOROSIS SCREENING 01/10/2025 01/10/2015, 11/26/2006 MEDICARE ANNUAL WELLNESS Discontinued 01/09/2015, 11/23/2012, VISIT 11/23/2011, Additional history exists PNEUMOCOCCAL 65+YRS Completed 01/09/2015, 08/06/2010 HPV IMMUNIZATION SERIES Aged Out No longer eligible based on patient's age to complete this topic MENINGOCOCCAL VACCINE IMM Aged Out No longer eligible based on patient's age to complete this topic documented as of this encounter Results Not on filedocumented in this encounter Visit Diagnoses Diagnosis Pedal edema - Primary Edema Hypothyroidism, unspecified type Chronic a-fib (HCC) Atrial fibrillation Acquired equinus deformity of both feet Anticoagulant long-term use Encounter for long-term (current) use of anticoagulants Arthralgia of both knees documented in this encounter Guarantor Name Account Type Relation to Date of Phone Billing Address Patient Janice-de Personal/Famil 1940 [address] [phone] [place], [place] (Work) [id number] documented as of this encounter
--- OUTSIDE RECORDS SUMMARY | 2019-03-29 05:45 | XMS REPORT | Summary of Care ---
:1940 Author Organization [facility] Address [address] [facility] [place] [address] Care Team Providers Name Role Phone Alisa Yip MD Primary Care Provider Reason for Visit Reason Comments Pre-Op Exam Pre op for left shoulder replacement on 03/28/[address] Velasquez at [facility]. Encounter Details Date Type Department Care Team Description 03/09/2019 Office Visit [facility] Alisa Yip MD Preop examination (Primary Dx); Medicine [address] [facility] [address] [address] Hypothyroidism, unspecified type; [address] [place] [address] Chronic a-fib (HCC); [place] [address] Anticoagulant long-term use; [phone] JONAH (obstructive sleep apnea); (Fax) Lipid disorder; Paroxysmal SVT (supraventricular tachycardia) (HCC); Essential hypertension; Arthralgia of left acromioclavicular joint Allergies Active Allergy Reactions Severity Noted Date Comments Codeine Other 03/22/2008 "gets me into space" Meperidine And Related Nausea Only 02/20/2003 Food Swelling 11/29/2015 Sweet peppers and eggplant Sulfa Antibiotics Dermatologic Reaction 02/20/2003 skin peels Neoprene=dermatitis Tomato Dermatologic Reaction 07/24/2008 canned documented as of this encounter (statuses as of 03/09/2019) Medications Medication Sig Dispensed Refills Start Date [...] mouth once daily Coronary artery disease involving [place] coronary artery of [place] heart without angina pectoris duloxetine (CYMBALTA) 30 [...] as of this encounter (statuses as of 03/09/2019) Active Problems Problem Noted Date Status post total bilateral knee replacement 11/26/2016 Anticoagulant long-term use 09/04/2016 Left wrist pain 06/25/2016 Acquired equinus deformity of both feet 01/07/2016 Overview: 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 Positive cardiac stress test 11/29/2015 Chronic [...] as of this encounter (statuses as of 03/09/2019) Resolved Problems Problem Noted Date Resolved Date Tachycardia 03/15/2014 04/02/2014 Absence of menstruation 07/11/2008 07/11/2008 documented as of this encounter (statuses as of 03/09/2019) Immunizations Name Administration Dates Next Due Adacel [...] Sign Reading Time Taken Comments Blood Pressure 98/62 03/09/2019 1:56 PM EDT Pulse 60 03/09/2019 1:56 PM EDT Temperature - - Respiratory Rate - - Oxygen Saturation 100% 03/09/2019 1:56 PM EDT Inhaled Oxygen Concentration - - Weight 90.8 kg (200 lb 3.2 oz) 03/09/2019 1:56 PM EDT Height 165.1 cm (5' 5") 03/09/2019 1:56 PM EDT Body Mass Index 33.32 03/09/2019 1:56 PM EDT documented in this encounter Patient Instructions Patient InstructionsAlisa Yip MD - 03/09/2019 1:40 PM EDTPlan Blood pressure low today - On diuretic and beta carmine which reduce blood pressure - former helping to control pedal edema - latter supressing ectopics - which gives incentive to continue both - Since patient asymptomatic would continue both and monitor - She should hold the eliquis the day before surgery and then restart as per the surgical team - Continue synthroid/ zebeta should be taken with a sip of water day of surgery ; hold torsemide the am of surgery - She will bring her CPAP gear to the hospital documented in this encounter Progress Notes Alisa Yip MD - 03/09/2019 1:40 PM EDT NAME:Joey Padilla 1940: 1940 ENC Date: 03/09/2019 CC: Chief Complaint Patient presents with Pre-Op Exam Pre op for left shoulder replacement on 03/28/[address] Velasquez at [facility]. Joey Padilla is a 78-y.o. 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 / treadmill / bicycle without problem She denies any shortness of breath / chest pressure / palpitations/ faint / cough She has not history of reacton to anesthesia ; No bruising or bleeding problems Current Outpatient Medications Medication Sig bisoprolol (ZEBETA) [...] of both feet 01/07/2016 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 Positive cardiac stress test 11/29/2015 Chronic a-fib (HCC) 09/30/2015 JONAH (obstructive sleep apnea) 07/10/2015 Osteoporosis of forearm 01/29/2015 Hip and spine good - Frax data: 10 yr risk for major osteoporotic fracture - 6.7 %; hip fracture 0.5-% Paroxysmal SVT (supraventricular tachycardia) ([facility]) 04/02/2014 Palpitations 03/15/2014 Vertigo 01/25/2014 BMI 35.0-35.9,adult [...] aorta Diabetes Father Stroke Father Heart Father [place] Stroke Brother Breast Cancer Paternal Aunt No [...] a week Drug use: No OBJECTIVE: BP 98/62 (BP Location: Left arm, Patient Position: Sitting) | Pulse 60 | Ht 5 ' 5" (1.651 m) | Wt 200 lb 3.2 oz (90.8 kg) | SpO2 100% | BMI 33.32 kg/m . Heent neg Neck no JVD, thyromegaly or bruit Lungs Clear CV rrr ? Abd soft, nontender, no organomegaly Ext wide ankes - compression stockings -1+ edema Ankles turned in - Pulses bounding bilaterally - no evidence of venous stasis Neuro: intellect intact ; motor including gait unremarkable EKG - afib - 60 bpm A/P ICD-9-CM ICD-10-CM 1. Preop examination V72.84 Z01.818 AMBULATORY 12 LEAD EKG (GLOBAL) CBC WITH DIFFERENTIAL BASIC METABOLIC PANEL 2. Hypothyroidism, unspecified type 244.9 E03.9 THYROID STIMULATING HORMONE 3. Chronic a-fib (HCC) 427.31 I48.2 4. Anticoagulant long-term use V58.61 Z79.01 5. JONAH (obstructive sleep apnea) 327.23 G47.33 6. Lipid disorder 272.9 E78.9 LDL, DIRECT 7. Paroxysmal SVT (supraventricular tachycardia) (HCC) 427.0 I47.1 8. Essential hypertension 401.9 I10 9. Arthralgia of left acromioclavicular joint 719.41 M25.512 AMBULATORY 12 LEAD EKG (GLOBAL) Patient is a good candidate for planned surgery- no further testing Necessary. Her risk of a cardiovascular complication is < 0.5% aka the [facility] Cardiac preop will be completed by Dr Samaniego in the next few days ; ;[facility] Patient Instructions Plan Blood pressure low today - On diuretic and beta carmine which reduce blood pressure - former helping to control pedal edema - latter supressing ectopics - which gives incentive to continue both - Since patient asymptomatic would continue both and monitor - She should hold the eliquis the day before surgery and then restart as per the surgical team - Continue synthroid/ zebeta should be taken with a sip of water day of surgery ; hold torsemide the am of surgery - AUTHOR: Alisa Yip MD 14:51 03/09/2019 documented in this encounter Plan of Treatment Date Type Specialty Care Team Description 03/20/2019 Office Visit Cardiology Jt Samaniego MD [address] [place] [address] [phone] 03/30/2019 Office Visit Internal Medicine Alisa Yip MD [address] [place] [address] 01/17/2020 Office Visit Cardiology Jt Samaniego MD [address] [place] [address] [phone] Name Type Priority Associated Diagnoses Date/Time CBC WITH DIFFERENTIAL Lab Routine Preop examination 03/09/2019 3:31 PM EDT THYROID STIMULATING Lab Routine Hypothyroidism, 03/09/2019 3:31 PM HORMONE unspecified type EDT BASIC METABOLIC PANEL Lab Routine Preop examination 03/09/2019 3:31 PM EDT LDL, DIRECT Lab Routine Lipid disorder 03/09/2019 3:31 PM EDT Name Type Priority Associated Diagnoses Order Schedule AMBULATORY 12 LEAD EKG EKG Routine Preop examination Ordered: 03/09/2019 (GLOBAL) Arthralgia of left acromioclavicular joint CBC WITH DIFFERENTIAL Lab Routine Preop examination Expected: 03/09/2019 (Approximate), Expires: 09/05/2019 THYROID STIMULATING Lab Routine Hypothyroidism, unspecified Expected: HORMONE type 03/09/2019 (Approximate), Expires: 09/05/2019 BASIC METABOLIC PANEL Lab Routine Preop examination Expected: 03/09/2019 (Approximate), Expires: 09/05/2019 LDL, DIRECT Lab Routine Lipid disorder Expected: 03/09/2019 (Approximate), Expires: 09/05/2019 Health Maintenance Due Date Last Done Comments [...] filedocumented in this encounter Visit Diagnoses Diagnosis Preop examination - Primary Preoperative examination, unspecified Hypothyroidism, unspecified type Chronic a-fib (HCC) Atrial fibrillation Anticoagulant long-term use Encounter for long-term (current) use of anticoagulants JONAH (obstructive sleep apnea) Obstructive sleep apnea (adult) (pediatric) Lipid disorder Unspecified disorder of lipoid metabolism Paroxysmal SVT (supraventricular tachycardia) (HCC) Paroxysmal supraventricular tachycardia Essential hypertension Unspecified essential hypertension Arthralgia of left acromioclavicular joint Pain in joint, shoulder region documented in this encounter Guarantor Name Account Type Relation to Date of Phone Billing Address Patient Janice-de Personal/Famil 1940 [address] [phone] [place], [place] (Work) [address] documented as of this encounter
--- OUTSIDE RECORDS SUMMARY | 2019-03-29 05:45 | XMS REPORT | Continuity of Care Document ---
:1940 External Reference #:[id number] Author Name Tom Velasquez MD (transmitted by agent of provider Laurie Amaya) Address [address] [place] [address] Care Team Providers Name Role Phone Alisa Yip MD - Internal Medicine Care Team Information Hand Embroiderer [phone] Problems Active Problems Provider Date Prosthetic arthroplasty [...] every DR Part morning Citracal +D3 Unknown [phone]-mg-Unit Chewtabs Rosuvastatin Calcium 1 tab by mouth [...] Available Procedures Date Code Description Status 10/27/2018 42848 Inject/Drain Joint/Bursa Major W/O US Completed Medical [...]
--- OUTSIDE RECORDS SUMMARY | 2019-03-29 05:45 | XMS REPORT | Continuity of Care Document ---
:1940 External Reference #:[id number] Author Name Tom Velasquez MD (transmitted by agent of provider Nina Sanchez) Address [address] [place] [address] Care Team Providers Name Role Phone Alisa Yip MD - Internal Medicine Care Team Information Nurses Aide [phone] Problems Active Problems Provider Date Prosthetic arthroplasty [...] every DR Part morning Citracal +D3 Unknown [phone]-mg-Unit [place] Rosuvastatin Calcium 1 tab by mouth [...] Available Procedures Date Code Description Status 10/27/2018 83688 Inject/Drain Joint/Bursa Major W/O US Completed Medical Devices Description No Information Available Encounters Type Date Location Provider Dx Diagnosis Office Visit 02/24/2019 Orthopedic Tom Velasquez MD M19.012 Primary 9:00a [facility] osteoarthritis, left shoulder M75.102 Unsp rotatr-cuff tear/ruptr of left shoulder, not trauma Office Visit 11/15/2018 Trino Velasquez M19.012 Primary 10:00a Services Of MD osteoarthritis, left C.M.A. shoulder M19.011 Primary osteoarthritis, right shoulder Office Visit 10/27/2018 Orthopedic Tom Velasquez M19.012 Primary 10:30a Services Of osteoarthritis, left C.M.A. shoulder M75.101 Unsp rotatr-cuff tear/ruptr of right shoulder, not trauma M19.011 Primary osteoarthritis, right shoulder M75.102 Unsp rotatr-cuff tear/ruptr of left shoulder, not trauma Office Visit 10/24/2018 9:15a Orthopedic Nereida Crabtree, Z96.652 Presence of left Services Of Gareth [...] Tom Velasquez Z96.611 Presence of Services Of right artificial C.M.A. shoulder joint Office Visit 09/15/2018 10:30a Orthopedic Davidson Ruiz96.611 Presence of Services Of right artificial C.M.A. shoulder joint M25.511 Pain in [...] M.D. 10/24/2018 M25.561 Pain in right knee NereidaSolitario Horton.Josephine 10/24/2018 M25.562 Pain in left knee NereidaSolitario Horton.DFrank 10/24/2018 M25.461 Effusion, right knee Nereida Solitario Crabtree.Josephine 10/24/2018 M25.462 Effusion, left knee Nereida Crabtree M.D. 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 M.DFrank prosthetic right knee 10/24/2018 T84.051A Periprosthetic osteolysis of internal Nereidapito Crabtree M.DFrank prosthetic left hip jaskaran 09/22/2018 Z96.611 Presence of right artificial shoulder joint Tom Velasquez MD 09/15/2018 Z96.611 Presence of right artificial shoulder joint Tom Velasquez MD 09/15/2018 M25.511 Pain in right shoulder Tom Velasquez MD Plan of Treatment Future Appointment(s):03/29/2019 7:30 am - Tom Velasquez MD at [facility]03/16/2019 9:45 am - [facility] - Tom Velasquez, MDM19.012 Primary osteoarthritis, left shoulderFollow up:Follow up: for h and pM75.102 Unspecified rotator cuff tear or rupture of left shoulder, n Functional Status Description No Information Available Mental Status Description No Information Available Referrals Description No Information Available
[2019-03-29] MEDS ORDERED: Famotidine IV* 10 MG/ML 2 ML (20 mg) IV ONE (06:00)
[2019-03-29] MEDS ORDERED: Lactated Ringers 1000 ML Bag* 1,000 ML IV SCH ×2 (06:00→10:00)
[2019-03-29] MEDS ORDERED: Famotidine IV* 10 MG/ML 2 ML (20 mg) ONE (06:13)
[2019-03-29] MEDS ORDERED: ceFAZolin 2 GM in NS PREMIX(*) 2 GM/100 ML BAG IVPB ONE (06:13)
[2019-03-29] MEDS ORDERED: Lidocaine 1% MPF ** 5 ML VIAL ONE (06:57)
[2019-03-29] MEDS ORDERED: ROPIVACAINE 5 MG/ML 30 ML BTL (0.5%) ONE (06:57)
[2019-03-29 07:07] LABS: INR 1.13 (0.82-1.09)
[2019-03-29] MEDS ORDERED: Midazolam* 1 MG/ML 5 ML VIAL (5 MG) ONE (07:28)
[2019-03-29] MEDS ORDERED: fentaNYL* 50 MCG/ML 2 ML VIAL (100 MCG VIAL) ONE (08:03)
[2019-03-29] MEDS ORDERED: KETAMINE HCL* 50 MG/ML 10 ML VIAL ONE (08:11)
[2019-03-29] MEDS ORDERED: Ondansetron INJ* 2 MG/ML VIAL ONE (08:55)
[2019-03-29] MEDS ORDERED: Succinylcholine* 20 MG/ML 10 ML VIAL ONE (08:55)
[2019-03-29] MEDS ORDERED: Dexamethasone IV* 4 MG/ML 1 ML (4 MG) ONE (08:55)
[2019-03-29] MEDS ORDERED: Lidocaine 2% PF * 5 ML VIAL ONE (08:55)
[2019-03-29] MEDS ORDERED: Ketorolac INJ* 30 MG/ML 1 ML VIAL ONE (08:55)
[2019-03-29] MEDS ORDERED: Propofol* 10 MG/ML 20 ML BTL ONE (08:55)
[2019-03-29] MEDS ORDERED: EPHEDrine (Pressors)* 50 MG/ML VIAL ONE (08:55)
[2019-03-29] MEDS ORDERED: Phenylephrine 40 MCG/ML SYRINGE ONE (08:55)
[2019-03-29] MEDS ORDERED: DiMENhydriNATE IV* 50 MG/ML VIAL ONE (08:55)
[2019-03-29] MEDS ORDERED: Magnesium Hydroxide LIQ* 30 ML UDC PO PRN (09:48)
[2019-03-29] MEDS ORDERED: oxyCODONE TAB* 5 MG TAB PO PRN (09:48)
[2019-03-29] MEDS ORDERED: Polyethylene Glycol 3350* 17 GM PACKET PO PRN (09:48)
[2019-03-29] MEDS ORDERED: Cyclobenzaprine TAB* 10 MG PO PRN (09:48)
[2019-03-29] MEDS ORDERED: diPHENhydraMINE PO* 25 MG PO PRN (09:48)
[2019-03-29] MEDS ORDERED: Ondansetron INJ* 2 MG/ML VIAL IV PRN (09:48)
[2019-03-29] MEDS ORDERED: Ondansetron ODT TAB* 4 MG PO PRN (09:48)
[2019-03-29] MEDS ORDERED: traMADol TAB* 50 MG PO PRN (09:48)
[2019-03-29] MEDS ORDERED: diPHENhydraMINE IV* 50 MG/ML 1 ml VIAL (BENADRYL) IV PRN (09:48)
[2019-03-29] MEDS ORDERED: Temazepam CAP* 15 MG PO PRN (09:48)
[2019-03-29] MEDS ORDERED: Morphine INJ* 2 MG/ML 1 ML SYRINGE (TWO MG - NEW SYRINGE VERSION) IV PRN (09:48)
[2019-03-29] MEDS ORDERED: Acetaminophen TAB* 325 MG PO PRN (11:02)
[2019-03-29] MEDS: ceFAZolin 1 GM ADVAN(*) 1 GM in NS 0.9% 50 ML* 50 ML IVPB SCH (16:48)
[2019-03-29] MEDS: Acetaminophen TAB* 325 MG PO SCH ×2 (16:52→22:16)
[2019-03-29] MEDS: Bisoprolol TAB* 5 MG PO SCH (18:13)
[2019-03-29] MEDS: Cholecalciferol TAB* 1000 UNITS PO SCH (18:13)
[2019-03-29] MEDS: Atorvastatin* 10 MG TAB PO SCH (18:14)
[2019-03-29] MEDS: oxyCODONE/Acetamin 5/325 MG* TAB PO PRN ×2 (18:18→22:22)
--- NOTE | 2019-03-29 19:00 | OP ---
CC: PCP, Dr. Yip * DATE OF OPERATION: 03/29/19 - ROOM #350 DATE OF : 38 ATTENDING SURGEON: Tom Velasquez MD BUSINESS OFFICE TECHNOLOGY INSTRUCTOR: BETTY Olsen. An drug safety assistant was needed for the entirety of the case to help with positioning, retraction, and was utilized throughout all portions of the case. ANESTHESIOLOGIST: Dr. Cooley. ANESTHESIA: General interscalene block. PRE-OP DIAGNOSIS: Left rotator cuff arthropathy. POST-OP DIAGNOSIS: Left rotator cuff arthropathy. OPERATIVE PROCEDURE: Left shoulder reverse arthroplasty and open biceps tenodesis. COMPLICATIONS: None. ESTIMATED BLOOD LOSS: About 150. IMPLANTS: Tornier Reversed Aequalis threaded post baseplate 25 x 30 and centered glenosphere 36 mm, Flex shoulder system with a centered tray and +6 poly and an Ascend Flex 4B stem. OUTPUT: Drains x1. INDICATIONS: Joey Juarez is a 78-year-old female with persistent left shoulder pain. She has failed conservative management. She has elected to proceed surgical treatment. She has rotator cuff arthropathy. After extensive discussion on risks and benefits of operative versus nonoperative treatment, she has elected to proceed with surgical treatment. The risks include but not limited to bleeding; infection; damage to nerves, vessels, surrounding structures; wound nonhealing; persistent pain; need for surgery; scaring; stiffness; incomplete relief of symptoms; risks of anesthesia , DVT, risk of dislocation or fracture. She underwent preoperative medical risk optimization and stabilized for surgery. DESCRIPTION OF PROCEDURE: The patient was greeted in the preoperative area by the attending surgeon. Correct extremity was marked. Consent was confirmed. The patient underwent interscalene nerve block by the anesthesiologist after which she was brought back to the operating table. She was placed in the supine position on the operating room table. She then underwent general anesthesia with endotracheal intubation after which she was properly positioned in a lazy beach chair position. All bony prominences were padded. She was secured with safety straps. The left shoulder was then prepped and draped in the usual sterile fashion beginning with chlorhexidine soap, scrub, and alcohol wipe and a final prep with ChloraPrep. After appropriate surgical pause indicating site, side, procedure, administration of antibiotics, a standard delta pectoral incision was then made. Soft tissues were carefully dissected to expose the delta pectoral intervals. The cephalic vein was identified, taken laterally over the deltoid. The clavipectoral facia was released. The CA ligament was released. The pec tendon was identified. The proximal 1 to 1.5 cm was then released. The biceps was then opened, was then tenodesed using heavy nonabsorbable suture. It was tenotomized proximal to that. The biceps was then followed to the glenohumeral joint and the subscap was then released in a subscapular fashion. There was evidence of full-thickness tear at the supraspinatus tendon. The subscap was tagged with a #5 Ethibond suture for retraction. Soft tissues were carefully released. After the subscap was released, the head was gently dislocated. There were grade 4 changes to the humeral head. A freehand neck cut was then made and using the anatomic landmarks, the canal finder was used to find the canal. The broaching began, size 4B was found to be a good fit. The Cryo/Cuff was weaned after all osteophytes were removed. The traction plate was placed and attention directed to the glenoid. The posterior retractor then placed. The glenoid was exposed. There was evidence of grade 3 and 4 changes. The anterior, superior, and posterior labrum were then removed. The subscap was debrided with adhesions and the superior, medial, and inferior glenohumeral ligaments were released with care to protect the neurovascular structures. The inferior structures were released carefully. Once the glenoid was exposed, the guide was then used to place it low inferior in the midline of the glenoid. The reaming then began with a size 25 mm reamer. The spinner hand was then done for 36 mm glenosphere. The 8-mm cannula drill was then used to drill and then 6.5 mm drill hole was measured and 30 was found to be appropriate. The screw hole was then tapped. The final implant was then brought to field and placed with excellent purchase. Three interlocking screws were then placed with excellent purchase with the appropriate length. The glenosphere was then impacted into position, secured with a set screw. Attention was then directed to the humerus. The humerus exposed. The stem was first checked to see if it was well seated. The centered tray was then placed and the +6 poly was placed. The shoulder was then reduced, taken through range of motion, had appropriate amount of shuck and forward flexion was about 160, abduction about 90, external rotation to about 55. The shoulder was then dislocated and the final implants were chosen. Two interosseous drill tunnels were then made and #5 Ethibond suture was then passed for later subscap closure. The final implants were then prepared on the back table, was then impacted into position. The shoulder was then reduced , taken through range of motion, was found to be the same as the trial. The wounds were then copiously irrigated with sterile saline. The subscap was closed in a horizontal mattress configuration. The wound was irrigated again. Intraarticular drain was placed and then irrigated again. The delta pectoral interval was closed with 2-0 Ethibond suture. The wounds were irrigated, skin was closed in layers with 3-0 Monocryl for subcu and 3-0 Monocryl running sterile dressings were applied. A Cryo/Cuff and a sling were applied. She was awoken from anesthesia, transferred to PACU in stable condition. POSTOPERATIVE PLAN: She will be nonweightbearing in the sling for approximately 6 weeks. She will be admitted overnight for 24 hours for postoperative antibiotics. I will continue to monitor the patient. She will be discharged on postop day 1. She will be on Lovenox for DVT prophylaxis while she is inhouse and then discharged without anything. I will see her back in the office in 10 to 14 days. [id number]/CPS #: [id number] MTDLeoncio
[2019-03-29] MEDS: Apixaban* 5 MG TAB PO SCH (20:48)
[2019-03-29] MEDS: Docusate CAP* 100 MG PO SCH (20:48)
[2019-03-30] MEDS: ceFAZolin 1 GM ADVAN(*) 1 GM in NS 0.9% 50 ML* 50 ML IVPB SCH ×2 (00:11→08:17)
[2019-03-30] MEDS: Levothyroxine TAB* 100 MCG TAB PO SCH (05:46)
[2019-03-30] MEDS: Acetaminophen TAB* 325 MG PO SCH ×3 (05:46→22:32)
[2019-03-30 06:29] LABS: Hematocrit 33 % (35-47); Hemoglobin 11.2 g/dL (12.0-16.0); Mean Platelet Volume 9.9 fL (7.4-10.4); Platelet Count 126 10^3/uL (150-450)
[2019-03-30 06:48] LABS: BUN/Creatinine Ratio 27.4 (8-20); Calcium 8.8 mg/dL (8.6-10.3); EGFR African American 79.1 (>60); EGFR Non-African American 65.4 (>60); Potassium 4.3 mmol/L (3.5-5.0)
[2019-03-30] MEDS: Calcium Carbonate TAB* 1250 MG (CALCIUM 500 MG) PO SCH (08:18)
[2019-03-30] MEDS: Apixaban* 5 MG TAB PO SCH ×2 (08:18→19:56)
[2019-03-30] MEDS: Docusate CAP* 100 MG PO SCH ×2 (08:18→19:56)
[2019-03-30] MEDS: oxyCODONE/Acetamin 5/325 MG* TAB PO PRN ×3 (08:18→19:56)
[2019-03-30] MEDS: DULoxetine DR CAP* 30 MG CAP.DR PO SCH (08:18)
[2019-03-30] MEDS: Vitamin THERAPEUTIC TAB PO SCH (08:18)
[2019-03-30] MEDS: Torsemide TAB* 20 MG PO SCH (08:20)
--- NOTE | 2019-03-30 11:14 | PN ---
Progress Note - Progress Note Date of Service: 03/30/19 SOAP: Subjective: []Pt seen at bedside. She feels well without dizziness, nausea, chest pain, shortness of breath Objective: []Gen: Appears well, NAD LLE: Left shoulder in sling, drain removed with tip intact. Wrist and digit flexion and extension intact, thumbs up and okay intact. Sensation intact to light touch distally. Cap refill less than 2 seconds distally and radial pulse 2 + Assessment: []Left shoulder reverse Plan: []nwb LUE, PROM only of shoulder, no FF or abd past 90 no ER past 25. 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 Vital Signs Temp 98.5 F 03/30/19 07:36 Pulse 66 03/30/19 07:36 Resp 18 03/30/19 10:35 BP 103/64 03/30/19 07:36 Pulse Ox 95 03/30/19 07:36 Intake & Output 03/29/19 03/30/19 03/30/19 18:59 06:59 18:59 Intake Total 1500 1290 1060 Output Total 100 225 Balance 1400 1290 835 Intake: IV Fluids 1500 1000 1010 LR 1500 1000 1010 IVPB 50 50 ABX - CEFAZOLIN 50 50 Oral 240 Output: Hemovac Amount #1 100 Urine 225 Other: # Voids 1 Laboratory Last Values Hgb 11.2 g/dL (12.0-16.0) L 03/30/19 06:10 Hct 33 % (35-47) L 03/30/19 06:10 Plt Count 126 10^3/uL (150-450) L 03/30/19 06:10 MPV 9.9 fL (7.4-10.4) 03/30/19 06:10 INR (Anticoag Therapy) 1.13 (0.82-1.09) H 03/29/19 06:47 Sodium 139 mmol/L (135-145) 03/30/19 06:10 Potassium 4.3 mmol/L (3.5-5.0) 03/30/19 06:10 Chloride 107 mmol/L (101-111) 03/30/19 06:10 Carbon Dioxide 28 mmol/L (22-32) 03/30/19 06:10 Anion Gap 4 mmol/L (2-11) 03/30/19 06:10 BUN 23 mg/dL (6-24) 03/30/19 06:10 Creatinine 0.84 mg/dL (0.51-0.95) 03/30/19 06:10 Est GFR ( Amer) 79.1 (>60) 03/30/19 06:10 Est GFR (Non-Af Amer) 65.4 (>60) 03/30/19 06:10 BUN/Creatinine Ratio 27.4 (8-20) H 03/30/19 06:10 Glucose 135 mg/dL (70-100) H 03/30/19 06:10 Calcium 8.8 mg/dL (8.6-10.3) 03/30/19 06:10
--- NOTE | 2019-03-30 11:18 | PN ---
Progress Note - Progress Note Date of Service: 03/30/19 Note: Pt seen and examined. Doing ok. Pain controlled. Sling and drain in place. AFVSS NAD. AAOx3. dressing in place. SILT grossly distally. brisk cap refill. able to flex/ext digits Xrays reviewed and acceptable. A/P 78 yo F POD#1 from L reverse doing well [facility]B dispo home vs SNF analgesia post op abx
[2019-03-30] MEDS ORDERED: Enoxaparin(*) 40 MG/0.4 ML SYR SUBCUT SCH (12:00)
[2019-03-30] MEDS: Atorvastatin* 10 MG TAB PO SCH (18:10)
[2019-03-30] MEDS: Bisoprolol TAB* 5 MG PO SCH (18:10)
[2019-03-30] MEDS: Cholecalciferol TAB* 1000 UNITS PO SCH (18:10)
[2019-03-31] MEDS: oxyCODONE/Acetamin 5/325 MG* TAB PO PRN ×3 (03:44→18:12)
[2019-03-31] MEDS: Levothyroxine TAB* 100 MCG TAB PO SCH (05:32)
[2019-03-31] MEDS: Acetaminophen TAB* 325 MG PO SCH ×3 (05:34→20:59)
[2019-03-31 06:55] LABS: Hematocrit 35 % (35-47); Hemoglobin 11.6 g/dL (12.0-16.0); Mean Platelet Volume 9.7 fL (7.4-10.4); Platelet Count 126 10^3/uL (150-450)
[2019-03-31] MEDS: Docusate CAP* 100 MG PO SCH ×2 (08:47→21:02)
[2019-03-31] MEDS: Vitamin THERAPEUTIC TAB PO SCH (08:47)
[2019-03-31] MEDS: Calcium Carbonate TAB* 1250 MG (CALCIUM 500 MG) PO SCH (08:47)
[2019-03-31] MEDS: Torsemide TAB* 20 MG PO SCH (08:47)
[2019-03-31] MEDS: Apixaban* 5 MG TAB PO SCH ×2 (08:47→21:02)
[2019-03-31] MEDS: DULoxetine DR CAP* 30 MG CAP.DR PO SCH (08:47)
[2019-03-31] MEDS ORDERED: Bisacodyl SUPP* 10 MG SUPP PR PRN (09:48)
--- NOTE | 2019-03-31 16:03 | PN ---
Progress Note - Progress Note Date of Service: 03/31/19 SOAP: Subjective: [Pt seen at bedside. She feels well without dizziness, nausea, chest pain, shortness of breath Objective: []Gen: Appears well, NAD LLE: Left shoulder in sling, dressing changed. Wrist and digit flexion and extension intact, thumbs up and okay intact. Sensation intact to light touch distally. Cap refill less than 2 seconds distally and radial pulse 2+ Vital Signs Temp 97.4 F 03/31/19 15:51 Pulse 64 03/31/19 15:51 Resp 16 03/31/19 15:51 BP 133/72 03/31/19 15:51 Pulse Ox 99 03/31/19 15:51 Intake & Output 03/30/19 03/31/19 03/31/19 18:59 06:59 18:59 Intake Total 2273 1050 500 Output Total 237 413 3768 Balance 1623 750 -500 Intake: IV Fluids 1723 LR 1723 IVPB 310 ABX - CEFAZOLIN 50 ABX - VANCOMYCIN 260 Oral 240 1050 500 Output: Urine 339 455 4435 Other: Date of Last Bowel 03/31/19 Movement # Bowel Movements 1 Estimated Stool Amount Small Assessment: []Left total shoulder reverse Plan: []nwb LUE, PROM only of shoulder, no FF or abd past 90 no ER past 25. Ok AROM elbow wrist and hand [facility] tomorrow
[2019-03-31] MEDS: Cholecalciferol TAB* 1000 UNITS PO SCH (18:07)
[2019-03-31] MEDS: Atorvastatin* 10 MG TAB PO SCH (18:08)
[2019-03-31] MEDS: Bisoprolol TAB* 5 MG PO SCH (18:08)
[2019-04-01] MEDS: oxyCODONE/Acetamin 5/325 MG* TAB PO PRN ×3 (01:17→10:10)
[2019-04-01] MEDS: Levothyroxine TAB* 100 MCG TAB PO SCH (05:26)
[2019-04-01] MEDS: Acetaminophen TAB* 325 MG PO SCH (05:33)
[2019-04-01 07:17] LABS: Hematocrit 35 % (35-47); Hemoglobin 11.7 g/dL (12.0-16.0); Mean Platelet Volume 9.5 fL (7.4-10.4); Platelet Count 132 10^3/uL (150-450)
--- NOTE | 2019-04-01 08:28 | PN ---
Progress Note - Progress Note Date of Service: 04/01/19 Note: Pt seen and examined. Doing well. Pain is controlled. Potentially going to [facility] today. Sling in place. Temp Pulse Resp BP Pulse Ox 97.4 F 67 16 123/76 97 04/01/19 03:40 04/01/19 03:40 04/01/19 05:27 04/01/19 03:40 04/01/19 03:40 NAD. AAOx3. sitting comfortably in chair. SILT grossly distally. 2+ radial pulse. able to flex/ext digits. dressing in place. Laboratory Results - last 24 hr 04/01/19 07:09 Hgb 11.7 L Hct 35 Plt Count 132 L MPV 9.5 A/P POD#3 from L reverse doing well dispo today analgesia dressing down and may shower. will see 10-14 days post op
[2019-04-01] MEDS: Vitamin THERAPEUTIC TAB PO SCH (08:32)
[2019-04-01] MEDS: Apixaban* 5 MG TAB PO SCH (08:32)
[2019-04-01] MEDS: Docusate CAP* 100 MG PO SCH (08:32)
[2019-04-01] MEDS: DULoxetine DR CAP* 30 MG CAP.DR PO SCH (08:32)
[2019-04-01] MEDS: Calcium Carbonate TAB* 1250 MG (CALCIUM 500 MG) PO SCH (08:33)
[2019-04-01] MEDS: Torsemide TAB* 20 MG PO SCH (08:34)
[2019-04-01 08:44] VITALS: BP 121/72
--- NOTE | 2019-04-01 08:54 | DS ---
Orthopedic Discharge Summary - Discharge Summary Date of Admission:03/29/19 Date of Discharge: 04/01/19 Date of Surgery: 03/29/19 Attending Orthopedic Provider: Dr. Velasquez Pre-operative Diagnosis: Left rotator cuff arthropathy Operative Procedure: Left shoulder reverse arthroplasty and bicep tenodesis Disposition of Patient: [facility] Condition of Patient: Stable History: JUNG ARZOLA is a 78 year old F with years of increasingly severe left shoulder pain. Patient has failed conservative management and has elected to undergo a Left shoulder reverse arthroplasty and bicep tenodesis. Hospital Course: JUNG was admitted to [facility] on 03/29/19. Patient underwent a Left shoulder reverse arthroplasty and bicep tenodesis without complication followed by a brief recovery in PACU and transfer to the Short Stay Surgical Unit in stable condition. Our hospitalist service, physical therapy and occupational therapy also participated in this patients care. Post- op day 1: patient was alert and in no acute distress. Dressing was clean, dry and intact. Operative extremity with wrist flexion and extension intact, sensation intact to light touch distally, radial pulse2+. Post-op day two: dressing was changed, incision was clean, dry and intact. She continued PT and pain management. Post-op day 3: Patient was deemed to be medically and orthopedically stable for discharge. Physical therapy goals were met. Home Medications Medication Instructions Recorded Confirmed Type Apixaban* [Eliquis(TAB)] 5 mg PO BID 10/16/15 03/29/19 History Bisoprolol Fumarate [Bisoprolol 2.5 mg PO QPM 10/16/15 03/29/19 History Fumarate-] Cholecalciferol (Vitamin D3) 2,000 unit PO QPM 10/16/15 03/29/19 History [Vitamin D] DULoxetine DR HENRY* [Cymbalta CAP*] 30 mg PO QAM 10/16/15 03/29/19 History Torsemide TAB* [Demadex*] 10 mg PO QAM 10/16/15 03/29/19 History Levothyroxine TAB* [Synthroid TAB*] 100 mcg PO QAM 03/16/19 03/29/19 History Rosuvastatin Calcium 5 mg PO QPM 03/16/19 03/29/19 History traMADol TAB* [Ultram*] 50 mg PO BID 03/16/19 03/29/19 History Calcium 500 mg PO QAM 03/29/19 03/29/19 History Discharge Instructions following Orthopedic Surgery: Activity: * Sling at all times. Ok to extend elbow 1-2 times daily. * Continue physical therapy and occupational therapy exercises as shown. Wound care: * OK to shower. No bathing, swimming, or submerging wound. * Use gentle soap, pat dry. Cover with gauze, ANDRES wrap or tape if needed. Call Orthopedic office for: * Increased drainage * Redness * Increased pain * Fever Go to ER with shortness of breath or chest pain. Diet: * Regular diet * Increase fluids and fiber to prevent constipation. * Continue to use stool softeners, call office if no bowel motion within 48 hours. Medications: See Home Medication List in your packet for medications that you should take after discharge. Pain Control: Percocet Dosin/325 mg 1-2 tabs by mouth every 4-6 hours as needed for pain. Maximum of 10 tabs per day. Cyclobenzaprine 10 mg by mouth three times daily as needed for muscle spasm. Please note that Percocet contains Tylenol (acetaminophen). Maximum daily dose of Tylenol is 4000 mg from all sources. Antibiotics are required prior to any dental work. FOLLOW UP: Follow up with Dr. Velasquez within 10-14 days, call for appointment Please call our office with any questions or concerns ([phone])
== END 2019-04-01 10:40 | DRG 483 ==
LOC: AA 05:42 → SSU 09:48
PROVIDERS: ADMIT Orthopaedic Surgery; ATTEND Orthopaedic Surgery
PROC: 0LS40ZZ Reposition Left Upper Arm Tendon, Open Approach (ICD-10-PCS; 2019-03-29)
PROC: 0RRK00Z Replacement of Left Shoulder Joint with Reverse Ball and Socket Synthetic Substitute, Open Approach (ICD-10-PCS; principal; 2019-03-29 07:30)
DX: M75.102 Unspecified rotator cuff tear or rupture of left shoulder, not specified as traumatic (principal); I48.21 Permanent atrial fibrillation; I42.9 Cardiomyopathy, unspecified; I48.20 Chronic atrial fibrillation, unspecified; I10 Essential (primary) hypertension; E03.9 Hypothyroidism, unspecified; G47.33 Obstructive sleep apnea (adult) (pediatric); I25.10 Atherosclerotic heart disease of native coronary artery without angina pectoris; E66.9 Obesity, unspecified; Z96.611 Presence of right artificial shoulder joint; Z96.653 Presence of artificial knee joint, bilateral; M81.0 Age-related osteoporosis without current pathological fracture; E55.9 Vitamin D deficiency, unspecified; G43.909 Migraine, unspecified, not intractable, without status migrainosus; Z79.01 Long term (current) use of anticoagulants; Z79.899 Other long term (current) drug therapy; Z68.33 Body mass index [BMI] 33.0-33.9, adult; Z90.710 Acquired absence of both cervix and uterus; Z88.2 Allergy status to sulfonamides; Z83.3 Family history of diabetes mellitus; Z80.3 Family history of malignant neoplasm of breast
CPT/HCPCS: 36415; 80048; 85014; 85018; 85049; 85610; 88304; 88311; A9270-GY; C1713; C1776; G8978-GP-CJ; G8979-GP-CI; G8987-GO-CJ; G8988-GO-CI; J0330; J0690; J1100; J1240; J1885; J2250; J2405; J2704; J2795; J3010